=== PATIENT | male | born 1985 | race Hispanic/Latino ===

== ENCOUNTER 2022-09-27 06:55 | Day surgery (SDC) | payer BC ==
[2022-09-21 11:24] LABS: BASOPHILS % (AUTO) 0.4 % (0.0-5.0); EOSINOPHILS % (AUTO) 1.5 % (0.0-8.0); HEMATOCRIT 47.5 % (42-54); LYMPHOCYTES % (AUTO) 38.5 % (21.0-51.0); MEAN CORPUSCULAR HEMOGLOBIN 30.2 pg (27.0-33.0); MEAN CORPUSCULAR HGB CONC 33.7 g/dL (32.0-36.0); MEAN CORPUSCULAR VOLUME 89.8 fL (79-99); MONOCYTES % (AUTO) 8.1 % (3.0-13.0); NEUTROPHILS % (AUTO) 51.1 % (40.0-77.0); PLATELET COUNT (AUTO) 168 K/uL (130-400); RED BLOOD CELL COUNT(AUTO) 5.29 MIL/uL (4.50-6.20); RED CELL DISTRIBUTION WIDTH 12.2 % (11.0-15.5); WHITE BLOOD COUNT (AUTO) 7.4 K/uL (4.8-10.8)
[2022-09-21 11:32] LABS: CREATININE 1.1 mg/dL (0.5-1.5); POTASSIUM 4.4 mmol/L (3.5-5.1)
[2022-09-21 11:47] VITALS: BP 145/92; PULSE 67; RESP 20
[~2022-09-27] VITALS: Ht 175.3 cm; Wt 142.3 kg
[2022-09-27] VITALS (18 sets, daily range): BP systolic 93–136; BP diastolic 47–91; PULSE 68–86; RESP 12–17
[~2022-09-27 06:55] MED LIST: LISI5TAB21 PO
[2022-09-27] MEDS ORDERED: LACTATED RINGERS 1000ML 1,000 ML IV ONE (07:00)
[2022-09-27] MEDS ORDERED: CEFAZOLIN SODIUM 2 GM VIAL ONE (07:01)
[2022-09-27] MEDS ORDERED: BACITRACIN 28.4 GM OINT TP ONE (07:08)
[2022-09-27] MEDS ORDERED: BUPIVACAINE/PF 0.25% 30ML VIAL IJ ONE (07:08)
[2022-09-27] MEDS ORDERED: LIDOCAINE PF 100MG/5ML (2%) SYRINGE 5ML ONE (08:08)
[2022-09-27] MEDS ORDERED: SUCCINYLCHOLINE 200MG/10ML SYR ONE (08:09)
[2022-09-27] MEDS ORDERED: DEXAMETHASONE SOD PHOSPHATE 10MG/ML 1ML VIAL ONE (08:09)
[2022-09-27] MEDS ORDERED: GLYCOPYRROLATE 1 MG/5 ML SYRINGE ONE (08:09)
[2022-09-27] MEDS ORDERED: ONDANSETRON 4MG INJ ONE (08:09)
[2022-09-27] MEDS ORDERED: MIDAZOLAM HCL 1 MG/ML 2ML VIAL ONE (08:10)
[2022-09-27] MEDS ORDERED: FENTANYL CITRATE PF 50 MCG/1 ML 2ML VIAL ONE (08:10)
[2022-09-27] MEDS ORDERED: PROPOFOL 10 MG/ML 20ML VIAL IV ONE ×2 (08:10→08:46)
[2022-09-27] MEDS ORDERED: ROCURONIUM 10MG/1ML SYR 10 MG/ML ML ONE (08:10)
[2022-09-27] MEDS ORDERED: KETOROLAC 30MG VIAL (30MG/ML) ONE (09:05)
[2022-09-27] MEDS ORDERED: MORPHINE PF 100MG/10ML AMP IV ONE (09:07)
== END 2022-09-27 11:35 | disposition home or self-care (01) ==
LOC: DAH 06:55
PROVIDERS: ATTEND Urology
DX: N47.1 Phimosis (principal); Z20.822 Contact with and (suspected) exposure to COVID-19; I10 Essential (primary) hypertension; E66.01 Morbid (severe) obesity due to excess calories; N48.0 Leukoplakia of penis; Z98.890 Other specified postprocedural states
CPT/HCPCS: 87426; 36415; 80048; 85025; 54161; A6260; A4663; A4606; J7120; J3010; J0330; J3490 ×2; J1100; J2001; J2250; J2704 ×2; J2274; J2405; J1885; J0690; A4215; A4223; A4222; A4221; A4600